=== PATIENT | female | born 1975 | race Caucasian/White ===

== ENCOUNTER 2022-11-12 10:52 | Inpatient (IN) | payer MEDICAID ==
[~2022-11-12] VITALS: Ht 153.4 cm; Wt 81.6 kg
[2022-11-12 10:54] VITALS: BP 150/70
--- NOTE | 2022-11-12 11:05 | NUR ---
PATIENT AMBULATED TO BED 8.
--- NOTE | 2022-11-12 11:09 | NUR ---
DR. CONLEY EVALUATING PATIENT AT BEDSIDE.
[2022-11-12] MEDS ORDERED: MORPHINE SULFATE 4 MG/ML SYR IVP ONE (11:15)
[2022-11-12] MEDS ORDERED: ONDANSETRON 4 MG/2 ML VIAL IVP ONE (11:15)
[2022-11-12] MEDS ORDERED: NACL 0.9% 1,000 ML IV ONE ×2 (11:15→12:55)
[2022-11-12 11:28] LABS: HEMATOCRIT 38.3 % (36-48); HEMOGLOBIN 13.1 g/dL (12.0-16.0); MEAN CORPUSCULAR HEMOGLOBIN 30 pg (27-31); MEAN CORPUSCULAR HGB CONC 34 g/dL (33-37); MEAN CORPUSCULAR VOLUME 87.5 fL (80-94); PLATELET COUNT (AUTO) 276 K/uL (140-450); RED BLOOD CELL COUNT(AUTO) 4.38 MIL/uL (4.20-5.40); RED CELL DISTRIBUTION WIDTH 12.3 % (11.6-13.7); WHITE BLOOD COUNT (AUTO) 11.7 K/uL (4.8-10.8)
[2022-11-12 11:56] LABS: LYMPHOCYTES % (MANUAL) 10 % (20-46); MONOCYTES % (MANUAL) 2 % (5-12)
[2022-11-12 12:03] LABS: ALBUMIN 4.5 g/dL (3.4-5.0); ANION GAP 12.4 (8-16); CARBON DIOXIDE 28.4 mmol/L (21-32); CREATININE 0.9 mg/dL (0.6-1.3); POTASSIUM 3.8 mmol/L (3.5-5.1); TOTAL BILIRUBIN 0.4 mg/dL (0.0-1.0)
[2022-11-12] MEDS ORDERED: METF-713 PO (12:39)
--- NOTE | 2022-11-12 14:07 | NUR ---
Patient will be admitted to care of REECE MEDINA . Admited to TELEMETRY. Will go to room 105B. Belongings list completed. Report to JAMEY HARRIS.
--- NOTE | 2022-11-12 14:14 | NUR ---
PT WAS BROUGHT IN FROM ED BY CHEN IN STABLE CONDITION. PT AMBULATED TO THE BED WITH STEADY GAIT. PT BELONGINGS IN POSSESSION. VSS. SKIN INTACT, PLACED ON TELE MONITOR. ROOM AIR WITH CHEST RISING AND FALLING EVEN AND UNLABORED. EMESIS BAG PROVIDED FOR COMPLAINTS OF NAUSEA. IV INFILTRATED, CATH INTACT AND REMOVED. NEW IV PLACED TO RIGHT AC 22G, PATENT AND INTACT. PT TOLERATED. EDUCATION PROVIDED REGARDING HOSPITAL SETTING AND CALL LIGHT. PT VERBALIZED UNDERSTANDING. IV FLUIDS STARTED AND RUNNING AT 125CC PER MD ORDER. ALL SAFETY MEASURES IN PLACE, CALL LIGHT WITHIN REACH.
--- NOTE | 2022-11-12 14:30 | NUR ---
MRSA SWAB OBTAINED AND SENT TO LAB.
[2022-11-12] MEDS ORDERED: DEXTROSE 50% 50 ML SYR IVP PRN (14:45)
[2022-11-12] MEDS ORDERED: INSULIN LISPRO SLIDING SCALE 100 UNITS/ML VIAL SUBQ PRN (14:45)
--- NOTE | 2022-11-12 15:30 | NUR ---
CONSENT OBTAINED WITH VOYCE MANAGER OF DATA.
[2022-11-12 16:00] VITALS: BP 143/77
--- NOTE | 2022-11-12 16:15 | NUR ---
NGT PLACED, CONNECTED TO HIGH INTERMITTENT SUCTION PER MD ORDER. PT TOLERATED. SWOOSH HEARD, STAT CXR PLACED TO VERIFY PLACEMENT.
[2022-11-12] MEDS: BLOOD GLUCOSE MONITORING 1 DEV DEV FS SCH ×2 (16:46→20:49)
--- NOTE | 2022-11-12 17:57 | NUR ---
PT TAKEN TO OR IN STABLE CONDITION.
[2022-11-12] MEDS ORDERED: BUPIVACAINE-MPF/EPI 0.25% 10 ML VIAL INJ ONE (18:12)
[2022-11-12] MEDS ORDERED: LIDOCAINE 1% 500 MG/50 ML VIAL ONE (18:12)
[2022-11-12] MEDS ORDERED: ONDANSETRON 4 MG/2 ML VIAL ONE ×2 (18:15→18:23)
[2022-11-12] MEDS ORDERED: SUCCINYLCHOLINE CHLORIDE 200 MG/10 ML VIAL IVP ONE ×2 (18:15→18:22)
[2022-11-12] MEDS ORDERED: ROCURONIUM 50 MG/5 ML VIAL IV ONE ×2 (18:15→18:22)
[2022-11-12] MEDS ORDERED: DEXAMETHASONE 4 MG/ML VIAL ONE ×2 (18:15→18:22)
[2022-11-12] MEDS ORDERED: SUGAMMADEX SODIUM 200 MG/2 ML VIAL IV ONE ×2 (18:15→19:33)
[2022-11-12] MEDS ORDERED: DESFLURANE 240 ML BTL INH ONE (18:15)
[2022-11-12] MEDS ORDERED: PROPOFOL 200 MG/20 ML VIAL IV ONE ×2 (18:15→18:22)
[2022-11-12] MEDS ORDERED: fentaNYL citrate 0.05 MG/ML - 50mL vial IV ONE (18:15)
[2022-11-12] MEDS ORDERED: HYDROmorphone 1 MG/ML AMP ONE (18:15)
[2022-11-12] MEDS ORDERED: KETOROLAC 30 MG/ML VIAL ONE ×2 (18:15→18:23)
[2022-11-12] MEDS ORDERED: HYDROmorphone 1 MG/ML AMP IVP PRN ×2 (18:20→20:00)
[2022-11-12] MEDS ORDERED: ONDANSETRON 4 MG/2 ML VIAL IVP PRN (18:20)
[2022-11-12] MEDS ORDERED: fentaNYL citrate 0.05 MG/ML VIAL ONE (18:39)
[2022-11-12] MEDS ORDERED: HYDROmorphone PFS 2 MG/ML SYR ONE (19:05)
[2022-11-12] MEDS ORDERED: MORPHINE SULFATE 2 MG/ML SYR IVP PRN (20:00)
[2022-11-12] MEDS ORDERED: MORPHINE SULFATE 4 MG/ML SYR IV PRN (20:00)
[2022-11-12] MEDS ORDERED: ONDANSETRON 4 MG/2 ML VIAL IV PRN (20:00)
[2022-11-12 21:06] VITALS: BP 126/78
[2022-11-12] MEDS ORDERED: ceFAZolin 1,000 MG VIAL ONE (22:01)
[2022-11-12 23:22] VITALS: BP 124/76
[2022-11-13 04:17] VITALS: BP 120/82
[2022-11-13] MEDS ORDERED: ceFAZolin 1,000 MG VIAL ONE (04:23)
[2022-11-13] MEDS: BLOOD GLUCOSE MONITORING 1 DEV DEV FS SCH ×4 (05:57→20:44)
--- NOTE | 2022-11-13 05:58 | NUR ---
rn notes patient remains on room air, no sob noted, latest BS normal range. Denies pain at this time. Received IV abx when it was due. Plan is to remove FC sometime this AM.
[2022-11-13 06:53] LABS: ALBUMIN 3.1 g/dL (3.4-5.0); ANION GAP 11.6 (8-16); CARBON DIOXIDE 27.2 mmol/L (21-32); CREATININE 0.7 mg/dL (0.6-1.3); HEMATOCRIT 32.3 % (36-48); HEMOGLOBIN 11.1 g/dL (12.0-16.0); LYMPHOCYTES % (AUTO) 9.1 % (20.5-51.1); MEAN CORPUSCULAR HEMOGLOBIN 30 pg (27-31); MEAN CORPUSCULAR HGB CONC 34 g/dL (33-37); MEAN CORPUSCULAR VOLUME 88.2 fL (80-94); MONOCYTES # (AUTO) 0.7 K/uL (0.8-1.0); NEUTROPHILS % (AUTO) 83.9 % (42.2-75.2); PLATELET COUNT (AUTO) 211 K/uL (140-450); POTASSIUM 3.8 mmol/L (3.5-5.1); RED BLOOD CELL COUNT(AUTO) 3.66 MIL/uL (4.20-5.40); RED CELL DISTRIBUTION WIDTH 12.7 % (11.6-13.7); TOTAL BILIRUBIN 0.3 mg/dL (0.0-1.0); WHITE BLOOD COUNT (AUTO) 10.7 K/uL (4.8-10.8)
--- NOTE | 2022-11-13 07:24 | NUR ---
RECEIVED REPORT FROM IT CONSULTING DIRECTOR NURSE, ALL IT CONSULTING DIRECTOR EVENTS DISCUSSED. PT S/P HERNIA REPAIR, ON ROOM AIR WITH NO ACUTE S/S OF DISTRESS, CHEST RISING AND FALLING EVEN AND UNLABORED. ON TELE MONITOR. ALL SAFETY MEASURES IN PLACE, CALL LIGHT WITHIN REACH.
[2022-11-13 08:00] VITALS: BP 114/60
[2022-11-13] MEDS: ENOXAPARIN 40 MG/0.4 ML SYR SUBQ SCH (08:13)
--- NOTE | 2022-11-13 09:00 | NUR ---
JANICE MEDICATION ADMINISTERED PER MD ORDER, PT TOLERATED ADMINISTRATION. REPORTS ALL NEEDS ARE BEING MET. FULL ASSESSMENT COMPLETED, SEE INTERVENTIONS. ALL SAFETY MEASURES IN PLACE, CALL LIGHT WITHIN REACH.
[2022-11-13 12:00] VITALS: BP 117/66
--- NOTE | 2022-11-13 12:00 | NUR ---
BLOOD SUGAR IS 86, NO INSULIN COVERAGE NEEDED. IV PATENT AND INTACT. IV ABX ADMINISTERED PER MD ORDER. SILVER CATH REMOVED PER MD ORDER, PT TOLERATED. PT REPORTS ALL NEEDS BEING MET. ALL SAFETY MEASURES IN PLACE, CALL LIGHT WITHIN REACH.
--- NOTE | 2022-11-13 13:10 | NUR ---
PERSONAL BELONGINGS, RING AND NECKLACE FROM OR FOUND AND RETURNED TO PT.
[2022-11-13] MEDS: HYDROcodone/APAP 5/325 MG 1 TAB TAB PO PRN ×2 (14:36→19:47)
--- NOTE | 2022-11-13 14:36 | NUR ---
PT AMBULATED TO THE RESTROOM, REPORTS 5/10 ABDOMINAL PAIN, MEDICATED PER MD ORDER. EDUCATION REGARDING USING PILLOW FOR SPLINTING REITERATED.
[2022-11-13 16:00] VITALS: BP 110/55
--- NOTE | 2022-11-13 16:09 | NUR ---
PATIENT HAS BEEN SCREENED AND CATEGORIZED MODERATE NUTRITION RISK. PATIENT WILL BE SEEN WITHIN 3-5 DAYS OF ADMISSION. REVIEWED BY JANIS MURILLO RD
--- NOTE | 2022-11-13 16:56 | NUR ---
NO INSULIN COVERAGE NEEDED PER SLIDING SCALE, REPORTS ALL NEEDS ARE CURRENTLY BEING MET.
--- NOTE | 2022-11-13 18:06 | NUR ---
ALL NEEDS MET THROUGHOUT THE SHIFT, ALL QUESTIONS ANSWERED. NO S/S OF DISTRESS. ALL SAFETY MEASURES IN PLACE, CALL LIGHT WITHIN REACH.
--- NOTE | 2022-11-13 19:15 | NUR ---
RECEIVED PT AMBULATING OUT OF THE TOILET WITH ASSIST FROM FAMILY MEMBER, BACK TO BED, AAOX4, ABLE TO MAKE NEEDS KNOWN, MIDLINE INCISION WITH DRESSING DRY AND INTACT, NO SIGNS OF BLEEDING NOTED, COMPLAINING OF ABDOMINAL PAIN, WILL MEDICATE PRN, TOLERATING CLEAR LIQUID DIET, PLAN OF CARE DISCUSSED, CALL LIGHT WITHIN REACH.
[2022-11-13 20:00] VITALS: BP 114/53
[2022-11-14 04:00] VITALS: BP 113/63
--- NOTE | 2022-11-14 04:24 | NUR ---
PT ASLEEP, EASILY AROUSABLE, VITAL SIGNS STABLE, DENIES ANY PAIN, DUE ANCEF IVPB ADMINISTERED, MONITORED CLOSELY.
[2022-11-14] MEDS: BLOOD GLUCOSE MONITORING 1 DEV DEV FS SCH ×2 (06:40→11:30)
--- NOTE | 2022-11-14 07:13 | NUR ---
RECEIVED REPORT FROM NIGHT NURSE DARVIN FOR CONTINUITY OF CARE. INITIAL ASSESSMENT DONE. RESP. EVEN AND UNLABORED. IV SITE INTACT. NO C/O PAIN OR DISCOMFORT. CALL LIGHT KEPT WITHIN REACH. WELL. CONTINUE TO MONITOR.
--- NOTE | 2022-11-14 07:15 | NUR ---
PT SLEEPING, NO SIGNS OF DISTRESS, REPORT GIVEN TO CLAUDIO HERNANDEZ FOR CONTINUITY OF CARE.
[2022-11-14 08:00] VITALS: BP 112/58
[2022-11-14] MEDS ORDERED: IBUP-2217 PO (09:12)
[2022-11-14] MEDS ORDERED: HYDR-5080 PO (09:12)
[2022-11-14] MEDS: ENOXAPARIN 40 MG/0.4 ML SYR SUBQ SCH (09:31)
--- NOTE | 2022-11-14 09:31 | NUR ---
SCHEDULED MEDICATIONS GIVEN. TOLERATING WELL.
[2022-11-14] MEDS: HYDROcodone/APAP 5/325 MG 1 TAB TAB PO PRN (09:36)
--- NOTE | 2022-11-14 09:36 | NUR ---
PRN NORCO WAS GIVEN FOR PAIN MANAGEMENT. TOLERATING WELL.
--- NOTE | 2022-11-14 13:35 | NUR ---
PT LEFT, DISCHARGE TO HOME. TRANSPORTED BY PRIVATE CAR. AMBULATORY. ACCOMPANIED BY HER DAUGHTER. ALERT AND ORIENTED X4. RESP. EVEN AND UNLABORED. IV AND ID BAND REMOVED. PERSONAL BELONGINGS TAKEN. DISCHARGE PAPERWORK DISCUSS AND SIGNED BY PT. REMAINS STABLE.
== END 2022-11-14 13:35 | disposition home or self-care (01) | DRG 227 ==
LOC: MED 10:52 → MTU 12:58
PROVIDERS: ADMIT Family Medicine; ATTEND Family Medicine
PROC: 0WUF0JZ Supplement Abdominal Wall with Synthetic Substitute, Open Approach (ICD-10-PCS; principal; 2022-11-12 20:00)
DX: K43.6 Other and unspecified ventral hernia with obstruction, without gangrene (principal); E44.1 Mild protein-calorie malnutrition; E11.9 Type 2 diabetes mellitus without complications; D64.9 Anemia, unspecified; Z20.822 Contact with and (suspected) exposure to COVID-19; Z68.34 Body mass index [BMI] 34.0-34.9, adult; Z79.899 Other long term (current) drug therapy; Z88.0 Allergy status to penicillin; Z98.84 Bariatric surgery status
CPT/HCPCS: 36415; 71045; 80053; 82150; 82948; 83605; 83690; 84703; 85025; 86886; 86900; 86901; 87040; 87081; 96374; 96375; 99285; C1781; J0330; J0690; J1100; J1170; J1650; J1885; J2001; J2270; J2405; J2704; J3010; J3490; J7060; Q0092

== ENCOUNTER 2022-12-23 19:54 | Inpatient (IN) | payer MEDICAID ==
[~2022-12-23] VITALS: Ht 154.9 cm; Wt 76.2 kg
[~2022-12-23 19:54] MED LIST: HYDR-5080 PO; IBUP-2217 PO; METF-713 PO
[2022-12-23 20:03] VITALS: BP 130/111
--- NOTE | 2022-12-23 20:11 | NUR ---
PT TO BED 9
--- NOTE | 2022-12-23 20:33 | NUR ---
Dr. Duran examining patient.
--- NOTE | 2022-12-23 20:36 | NUR ---
Pt ambulatory from home with c/o abd pain associated with N&V since am. Pt states she had a hernia repair 40 days ago here at [facility]. Other PMH: DM Arrived to ED in no acute distress. Breathing adequately on RA. Emesis bag provided.
[2022-12-23] MEDS ORDERED: KETOROLAC 15 MG/ML VIAL IM ONE (20:50)
[2022-12-23 20:56] LABS: BASOPHILS % (AUTO) 0.2 % (0.0-2.0); EOSINOPHILS % (AUTO) 0.1 % (0.0-4.0); HEMATOCRIT 38.4 % (36-48); HEMOGLOBIN 12.7 g/dL (12.0-16.0); LYMPHOCYTES # (AUTO) 1.1 K/uL (2.5-16.5); LYMPHOCYTES % (AUTO) 11.2 % (20.5-51.1); MEAN CORPUSCULAR HEMOGLOBIN 30 pg (27-31); MEAN CORPUSCULAR HGB CONC 33 g/dL (33-37); MEAN CORPUSCULAR VOLUME 89.5 fL (80-94); MONOCYTES # (AUTO) 0.7 K/uL (0.8-1.0); MONOCYTES % (AUTO) 6.8 % (1.7-9.3); NEUTROPHILS # (AUTO) 7.9 K/uL (1.8-7.7); NEUTROPHILS % (AUTO) 81.7 % (42.2-75.2); PLATELET COUNT (AUTO) 273 K/uL (140-450); RED BLOOD CELL COUNT(AUTO) 4.29 MIL/uL (4.20-5.40); RED CELL DISTRIBUTION WIDTH 12.4 % (11.6-13.7); WHITE BLOOD COUNT (AUTO) 9.6 K/uL (4.8-10.8)
--- NOTE | 2022-12-23 21:00 | NUR ---
US at bedside for imaging.
[2022-12-23 21:28] LABS: ALBUMIN 4.2 g/dL (3.4-5.0); ANION GAP 16.3 (8-16); CARBON DIOXIDE 25.4 mmol/L (21-32); CREATININE 0.8 mg/dL (0.6-1.3); POTASSIUM 3.7 mmol/L (3.5-5.1); TOTAL BILIRUBIN 0.7 mg/dL (0.0-1.0)
--- NOTE | 2022-12-23 21:41 | NUR ---
Pt taken to CT for imaging.
--- NOTE | 2022-12-23 21:44 | NUR ---
Patient returned from CT scan via .
--- NOTE | 2022-12-23 22:00 | NUR ---
Urine collected and sent to lab.
--- NOTE | 2022-12-23 22:23 | NUR ---
COVID-19 swab collected and sent to lab.
[2022-12-23 22:37] LABS: BILIRUBIN,URINE 1+ (NEGATIVE); BLOOD, URINE NEGATIVE (NEGATIVE); COLOR,URINE YELLOW (YELLOW); LEUKOCYTE ESTERASE ,URINE NEGATIVE (NEGATIVE); NITRITE, URINE NEGATIVE (NEGATIVE); PH,URINE 5.5 (5.0-9.0); UGLUCOSE NEGATIVE (NEGATIVE)
[2022-12-23] MEDS ORDERED: DEXTROSE 50% 50 ML SYR IVP PRN (22:40)
[2022-12-23] MEDS ORDERED: MAG SULF 2000 MG/WATER PREMIX 50 ML IV PRN (22:40)
[2022-12-23] MEDS ORDERED: ZOLPIDEM 10 MG TAB PO PRN (22:40)
[2022-12-23] MEDS ORDERED: ONDANSETRON 4 MG/2 ML VIAL IVP PRN (22:40)
[2022-12-23] MEDS ORDERED: MORPHINE SULFATE 2 MG/ML SYR IVP PRN (22:40)
[2022-12-23] MEDS ORDERED: ACETAMINOPHEN 325 MG TAB PO PRN (22:40)
[2022-12-23] MEDS ORDERED: DOCUSATE SODIUM 100 MG GELCAP PO PRN (22:40)
[2022-12-23] MEDS ORDERED: ONDANSETRON 4 MG/2 ML VIAL IVP ONE (22:40)
[2022-12-23] MEDS ORDERED: LORazepam 2 MG/ML VIAL IVP PRN (22:40)
[2022-12-23] MEDS ORDERED: POTASSIUM CHLORIDE 10 MEQ TABER PO PRN (22:40)
[2022-12-23 22:52] LABS: APPEARANCE,URINE SLIGHTLY HAZY (CLEAR)
[2022-12-23 22:54] LABS: RBC,URINE 0-5 /HPF (0-5); WBC,URINE 0-5 /HPF (0-5)
[2022-12-23] MEDS: NACL 0.9% 1,000 ML IV SCH (23:09)
--- NOTE | 2022-12-23 23:34 | NUR ---
Pt admitted to [facility] under MD Trevino for DX: SBO. Report given to KIMBERLY Stovall. Pt in stable condition during admit.
--- NOTE | 2022-12-23 23:55 | NUR ---
RECEIVED ENDORSEMENT FROM JUNE HARRIS IN THE ED. PATIENT ARRIVED VIA WHEELCHAIR. AMBULATORY FROM WHEELCHAIR TO ASSIGNED BED. DENIES ANY PAIN/DISCOMFORT AT THIS TIME. PATIENT WAS ABLE TO GIVE ALL OF MEDICAL HISTORY VERBALLY AND WITH VOYCE ENROLLMENT NURSE [id number]. PATIENT COMPLAINED OF NAUSEA AND WAS GIVEN AN EMESIS BAG. PATIENT WAS EXPLAINED HOW TO CALL FOR ASSISTANCE WITH CALL LIGHT. PATIENT WAS MADE AWARE OF BATHROOM. SIDE RAILS UP X 2 FOR SAFETY AND COMFORT. [id number]
[2022-12-24 02:40] VITALS: BP 111/69
--- NOTE | 2022-12-24 03:13 | NUR ---
PATIENT NOTED IN BE ASLEEP. SIDE RAILS UP AND CALL LIGHT WITHIN REACH FOR ALL ASSISTANCE. NO NOTED S/S OF PAIN/DISCOMFORT. NO NOTED S/S OF RESPIRATORY DISTRESS. [id number]
[2022-12-24 06:19] LABS: BASOPHILS % (AUTO) 0.2 % (0.0-2.0); EOSINOPHILS # (AUTO) 0.1 K/uL (0-0.4); EOSINOPHILS % (AUTO) 1.3 % (0.0-4.0); HEMATOCRIT 32.8 % (36-48); LYMPHOCYTES % (AUTO) 18.1 % (20.5-51.1); MEAN CORPUSCULAR HEMOGLOBIN 30 pg (27-31); MEAN CORPUSCULAR HGB CONC 34 g/dL (33-37); MEAN CORPUSCULAR VOLUME 88.7 fL (80-94); MONOCYTES # (AUTO) 0.6 K/uL (0.8-1.0); NEUTROPHILS % (AUTO) 70.4 % (42.2-75.2); PLATELET COUNT (AUTO) 220 K/uL (140-450); RED CELL DISTRIBUTION WIDTH 12.3 % (11.6-13.7); WHITE BLOOD COUNT (AUTO) 5.7 K/uL (4.8-10.8)
[2022-12-24 06:44] LABS: ANION GAP 13.6 (8-16); CREATININE 0.7 mg/dL (0.6-1.3); POTASSIUM 3.6 mmol/L (3.5-5.1)
[2022-12-24] MEDS: BLOOD GLUCOSE MONITORING 1 DEV DEV FS SCH ×4 (06:58→20:30)
--- NOTE | 2022-12-24 07:20 | NUR ---
RECEIVED REPORT FROM NIGHT NURSE JONATHAN FOR CONTINUITY OF CARE. INITIAL ASSESSMENT DONE. IVF INFUSING WELL. CURRENTLY ON NPO. NO C/O PAIN OR DISCOMFORT. CALL LIGHT KEPT WITHIN REACH. WILL CONTINUE TO MONITOR.
--- NOTE | 2022-12-24 07:22 | NUR ---
ENDORSED PATIENT TO MARY SNYDER FOR CONTINUITY OF CARE. PATIENT WAS STABLE DURING SHIFT CHANGE. [id number]
[2022-12-24 08:00] VITALS: BP 102/60
--- NOTE | 2022-12-24 12:14 | NUR ---
BS CHECKED 88. NO COVERAGE NEEDED.
[2022-12-24] MEDS: NACL 0.9% 1,000 ML IV SCH (12:58)
[2022-12-24 16:00] VITALS: BP 104/56
--- NOTE | 2022-12-24 18:17 | NUR ---
BS CHECKED 74. NO COVERAGE NEEDED.
--- NOTE | 2022-12-24 18:30 | NUR ---
SEEN BY DR. HOOK, WITH ORDER XR SMALL BOWEL FOLLOW THROUGH. REMAINS NPO.
--- NOTE | 2022-12-24 19:40 | NUR ---
IV LEAKING. REINSERTED IV TO LT HAND 22 G, WITH GOOD BLOOD RETURN.
--- NOTE | 2022-12-24 19:45 | NUR ---
ENDORSED TO NIGHT NURSE JERRI FOR CONTINUITY OF CARE. SMALL FOLLOW THROUGH ONGOING. REMAINS STABLE.
--- NOTE | 2022-12-24 19:46 | NUR ---
RECEIVED REPORT FROM DAY SHIFT RN FOR CONTINUITY OF CARE. PT IS AAOX4 [place] SPEAKER. PT RESTING IN BED. NOT IN ANY DISTRESS. DENIES ANY PAIN. PT HAS LEFT HAND 22 GAUGE RUNNING NS 70. PT IS CURRENTLY RECEIVING SBO FOLLOW THROUGH. SAFETY MEASURES TAKEN. WILL CONTINUE TO MONITOR THE PT.
[2022-12-25] VITALS: BP 125/74
--- NOTE | 2022-12-25 | NUR ---
VITAL SIGNS TAKEN AND STABLE. IVF CHANGED. NO COMPLAINS FROM THE PT. WILL CONTINUE TO MONITOR.
--- NOTE | 2022-12-25 04:00 | NUR ---
CHECK ON PT. PT IS SLEEPING COMFORTABLY IN BED. PT NOT IN ANY DISTRESS. BREATHING EVEN AND UNLABORED. WILL CONTINUE TO MONITOR THE PT.
[2022-12-25 06:22] LABS: BASOPHILS % (AUTO) 0.6 % (0.0-2.0); EOSINOPHILS # (AUTO) 0.2 K/uL (0-0.4); EOSINOPHILS % (AUTO) 4.8 % (0.0-4.0); HEMATOCRIT 32.3 % (36-48); HEMOGLOBIN 10.7 g/dL (12.0-16.0); LYMPHOCYTES # (AUTO) 1.2 K/uL (2.5-16.5); LYMPHOCYTES % (AUTO) 29.7 % (20.5-51.1); MEAN CORPUSCULAR HEMOGLOBIN 30 pg (27-31); MEAN CORPUSCULAR HGB CONC 33 g/dL (33-37); MEAN CORPUSCULAR VOLUME 89.5 fL (80-94); MONOCYTES # (AUTO) 0.5 K/uL (0.8-1.0); MONOCYTES % (AUTO) 12.6 % (1.7-9.3); NEUTROPHILS # (AUTO) 2.1 K/uL (1.8-7.7); NEUTROPHILS % (AUTO) 52.3 % (42.2-75.2); PLATELET COUNT (AUTO) 217 K/uL (140-450); RED BLOOD CELL COUNT(AUTO) 3.61 MIL/uL (4.20-5.40); RED CELL DISTRIBUTION WIDTH 12.4 % (11.6-13.7)
[2022-12-25] MEDS: BLOOD GLUCOSE MONITORING 1 DEV DEV FS SCH ×4 (06:37→21:31)
[2022-12-25 06:58] LABS: ANION GAP 15.4 (8-16); CARBON DIOXIDE 23.6 mmol/L (21-32); CREATININE 0.7 mg/dL (0.6-1.3)
--- NOTE | 2022-12-25 07:19 | NUR ---
ENDORSED PT TO DAY SHIFT RN FOR CONTINUITY OF CARE. PT IS STABLE.
[2022-12-25 08:00] VITALS: BP_SYST 117; BP_SYST 121; BP_DIAS 63; BP_DIAS 71
--- NOTE | 2022-12-25 09:06 | NUR ---
PATIENT HAS BEEN SCREENED AND CATEGORIZED LOW NUTRITION RISK. PATIENT WILL BE SEEN WITHIN 7 DAYS OF ADMISSION. 12/23/22-12/30/[address]
--- NOTE | 2022-12-25 15:57 | NUR ---
SMALL BOWEL X-RAY RESULT REVIEWED THAT "NO EVIDENCE OF SMALL BOWEL OBSTRUCTION." DR. ENGEL AWARE, & PATIENT'S DIET ADVANCE FROM NPO TO FULL LIQUID DIET. WILL CONTINUE TO MONITOR. Addendum: 12/25/22 at 1601 by Oliva Sheffield RN Amended: Links added.
[2022-12-25 16:00] VITALS: BP 107/62
[2022-12-25] MEDS: NACL 0.9% 1,000 ML IV SCH ×2 (18:10)
--- NOTE | 2022-12-25 19:20 | NUR ---
RECEIVED ENDORSEMENT FROM DAY SHIFT NURSE FOR CONTINUITY OF CARE. PT IS AWAKE, ALERT AND VERBALLY RESPONSE. FAMILY MEMBER IS ON BEDSIDE DURING ASSESSMENT. PT DENIES OF PAIN, DISCOMFORT OR HEADACHE AT THIS TIME. PT VERBALIZED NO FEELING OF NAUSEA, NO GAGGING. IV SITE IS ON LEFT WRIST 22G, INTACT AND PATENT. IV FLUID INFUSING WELL OF NORMAL SALINE AT 70ML/HR. PT IS NOW ON FULL LIQUID DIET.
[2022-12-25 20:00] VITALS: BP 114/68
--- NOTE | 2022-12-25 21:31 | NUR ---
BLOOD SUGAR CHECKED = 104, NO INSULIN COVERAGE. PT IS STABLE.
--- NOTE | 2022-12-25 21:32 | NUR ---
NO EDEMA ON BUE OR BLE.
--- NOTE | 2022-12-26 | NUR ---
PT IS ASLEEP, NO FACIAL GRIMACING. NO SOB OR DISTRESS.
--- NOTE | 2022-12-26 04:00 | NUR ---
PT SLEEP WELL. PT IS ON STABLE CONDITION, NO SOB OR DISTRESS. NO FACIAL GRIMACING. DENIES OF PAIN OR DISCOMFORT. DENIES OF NAUSEA OR VOMITING.
[2022-12-26 07:01] LABS: BASOPHILS % (AUTO) 0.4 % (0.0-2.0); EOSINOPHILS # (AUTO) 0.2 K/uL (0-0.4); EOSINOPHILS % (AUTO) 4.3 % (0.0-4.0); HEMATOCRIT 32.7 % (36-48); HEMOGLOBIN 10.9 g/dL (12.0-16.0); LYMPHOCYTES # (AUTO) 1.6 K/uL (2.5-16.5); LYMPHOCYTES % (AUTO) 32.8 % (20.5-51.1); MEAN CORPUSCULAR HEMOGLOBIN 30 pg (27-31); MEAN CORPUSCULAR HGB CONC 33 g/dL (33-37); MEAN CORPUSCULAR VOLUME 89.3 fL (80-94); MONOCYTES # (AUTO) 0.6 K/uL (0.8-1.0); MONOCYTES % (AUTO) 11.8 % (1.7-9.3); NEUTROPHILS # (AUTO) 2.5 K/uL (1.8-7.7); NEUTROPHILS % (AUTO) 50.7 % (42.2-75.2); PLATELET COUNT (AUTO) 239 K/uL (140-450); RED BLOOD CELL COUNT(AUTO) 3.66 MIL/uL (4.20-5.40); RED CELL DISTRIBUTION WIDTH 12.5 % (11.6-13.7); WHITE BLOOD COUNT (AUTO) 4.8 K/uL (4.8-10.8)
[2022-12-26 07:14] LABS: ANION GAP 11.5 (8-16); CARBON DIOXIDE 25.2 mmol/L (21-32); CREATININE 0.6 mg/dL (0.6-1.3); POTASSIUM 3.7 mmol/L (3.5-5.1)
--- NOTE | 2022-12-26 07:25 | NUR ---
RECEIVED REPORT FROM AALIYAH HARDIN FOR CONTINUITY OF CARE. INITIAL ASSESSMENT DONE. IVF INFUSING WELL. NO C/O PAIN OR DISCOMFORT. CALL LIGHT KEPT WITHIN REACH. WILL CONTINUE TO MONITOR.
[2022-12-26] MEDS: BLOOD GLUCOSE MONITORING 1 DEV DEV FS SCH ×3 (07:44→16:30)
--- NOTE | 2022-12-26 07:44 | NUR ---
BLOOD SUGAR CHECKED = 80. NO INSULIN COVERAGE.
[2022-12-26] MEDS: NACL 0.9% 1,000 ML IV SCH (07:52)
[2022-12-26 08:00] VITALS: BP 120/64
[2022-12-26] MEDS ORDERED: MIRABULK PO (08:50)
--- NOTE | 2022-12-26 11:32 | NUR ---
BS CHECKED 164. PT REFUSED INSULIN D/T BS IS LOW IN A PAST DAYS.
[2022-12-26 16:00] VITALS: BP 130/96
--- NOTE | 2022-12-26 17:25 | NUR ---
PT LEFT. DISCHARGE TO HOME. TRANSPORTED BY PRIVATE VEHICLE. AMBULATORY. ALERT AND ORIENTED X 4. RESP. EVEN AND UNLABORED. ID BAND AND IV REMOVED. DISCHARGED PAPERWORK SIGNED AND DISCUSS BY PT. PERSONAL BELONGINGS TAKEN. NO C/O PAIN OR DISCOMFORT. REMAINS STABLE.
== END 2022-12-26 17:25 | disposition home or self-care (01) | DRG 247 ==
LOC: MED 19:54 → MTU 22:36
PROVIDERS: ADMIT Family Medicine; ATTEND Family Medicine
DX: K56.609 Unspecified intestinal obstruction, unspecified as to partial versus complete obstruction (principal); E83.51 Hypocalcemia; E11.9 Type 2 diabetes mellitus without complications; J45.909 Unspecified asthma, uncomplicated; K56.7 Ileus, unspecified; Z20.822 Contact with and (suspected) exposure to COVID-19; Z88.0 Allergy status to penicillin; Z79.899 Other long term (current) drug therapy; Z79.1 Long term (current) use of non-steroidal anti-inflammatories (NSAID); Z79.891 Long term (current) use of opiate analgesic
CPT/HCPCS: 36415; 74250; 76705; 80048; 80053; 81001; 82948; 83690; 83735; 85025; 87081; 96372; 96374; 99285; J1885; J2405; J3475; Q0092